=== PATIENT | male | born 1995 | race Caucasian/White ===

== ENCOUNTER 2017-10-17 13:47 | Emergency (ER) | payer BC ==
[2017-10-17 14:01] VITALS: BP 124/76; PULSE 81; TEMP 97.6; BMI 28.2
[2017-10-17] MEDS ORDERED: SODIUM CHLORIDE 0.9% 1000 ML INFUS.BAG IV ONE (14:17)
[2017-10-17] MEDS ORDERED: METOCLOPRAMIDE HCL INJECTION 10 MG/2 ML VIAL IVPB ONE (14:17)
[2017-10-17] MEDS ORDERED: ACETAMINOPHEN 325 MG TABLET (FP) PO ONE (14:17)
[2017-10-17] MEDS ORDERED: ACETAMINOPHEN 325 MG TABLET (FP) ONE (14:26)
--- NOTE | 2017-10-17 14:32 | PDOC ---
Attending Attestation - Resident Resident Name: Vikram Mendez - ED Attending Attestation I have performed the following: I have examined & evaluated the patient, The case was reviewed & discussed with the resident, I agree w/resident's findings & plan, Exceptions are as noted - HPI HPI: 10/17/17 15:17 The patient is a 22 year old male accompanied with his mother, with no significant past medical history, who presents to the emergency department for evaluation of shortness of breath. The patient reports shortness of breath 15 minutes after waking up. He describes his SOB as "hyperventilating" and states he was taking quick short breaths at the time. He called his mother who brought him to the ED for evaluation. His SOB resolved on the way to the ED. He reports he had a mild frontal headache after waking up, which has since resolved without intervention. The patient also reports 1 month of intermittent episodes of NBNB emesis every few days, most recently 15 minutes after eating last night. In addition he reports 1 month of night sweats and headaches. The patient reports visiting urgent care twice for these symptoms since 09/25 and was diagnosed with dehydration. He states he has been performing physical exercise since he joined [employer] 1 month ago. The patient reports feeling worn out from recent physical activity. The patient denies CP, fevers, chills, cough, nausea, vomiting, diarrhea, and constipation. Denies dysuria, frequency, urgency, and hematuria. Denies weight loss Allergies: NKA Social history: No reported cigarette, alcohol, or drug use. - Physicial Exam PE: 10/17/17 15:17 GENERAL: Awake, alert, and fully oriented, in no acute distress HEAD: No signs of trauma EYES: PERRLA, EOMI, sclera anicteric, conjunctiva clear ENT: Auricles normal inspection, hearing grossly normal, nares patent, oropharynx clear without exudates. Moist mucosa NECK: Normal ROM, supple, no lymphadenopathy, JVD, or masses LUNGS: Breath sounds equal, clear to auscultation bilaterally. No wheezes, and no crackles HEART: Regular rate and rhythm, normal S1 and S2, no murmurs, rubs or gallops ABDOMEN: Soft, nontender, normoactive bowel sounds. No guarding, no rebound. No masses EXTREMITIES: Normal range of motion, no edema. No clubbing or cyanosis. No cords, erythema, or tenderness BACK: No midline spinal tenderness in cervical/thoracic/lumbar region NEUROLOGICAL: Normal speech, cranial nerves intact, negative pronator drift, 5/ 5 strength in all 4 extremities, normal sensation to light touch in all 4 extremities, normal cerebellar exam, normal gait, normal reflexes and tone SKIN: Warm, Dry, normal turgor, no rashes or lesions noted. - Medical Decision Making 10/17/17 14:27 22yo M with no significant PMH presents to the ED with his mom after an episode of hyperventilation after he work up this morning. Pt also has been having 1 month of intermittent emesis, frontal headache, and lightheadedness. He has been to urgent care twice for these symptoms with normal work up. Pt admits to significant amount of stress since beginning physical training for the . He has missed multiple sessions of this training due to his sxs. Vitals and exam unremarkable. Will check basic labs, cpk, and treat nausea/ headache and reassess. It is unlikely that his blood work will be revealing of an etiology of these sxs given the duration, but will r/o anemia, dehydration, metabolic disarray. 10/17/17 15:30 labs wnl, cxr on my read appears normal. EKG pending. 10/17/17 15:57 Chest x-ray read with some mild congestion on the right. Patient's lungs are clear with normal oxygen saturation. Advised patient to have repeat chest x-ray as an outpatient. Patient has been asymptomatic while in the emergency department. EKG nonischemic. Patient is clinically well-appearing at this time, will refer to the resident clinic to establish care with her primary physician for follow-up. I discussed the physical exam findings, ancillary test results and final diagnoses with the patient. I answered all of the patient's questions. The patient was satisfied with the care received and felt comfortable with the discharge plan and treatment plan. The patient will call their primary care physician within 24 hours to arrange follow-up and will return to the Emergency Department with any new, persistent or worsening symptoms. Discharge Disposition - Diagnosis Shortness of breath - Discharge Dispostion Disposition: HOME Condition at time of disposition: Stable Last Admission D/C Date: 11/04/01 Decision to Admit order: No - Referrals Referrals: [facility] [place] [Provider Group] - Patient Instructions Printed Discharge Instructions: DI for Shortness of Breath, DI for Nausea -- Adult, DI for Vomiting -- Adult Additional Instructions: Call the provided referral number to schedule an appointment with a primary care provider within 3-4 days. As discussed, your CXR showed some congestion in the emergency department but your oxygen level, blood work, and vitals were all normal. Have the chest x-ray repeated when you follow up with your primary doctor. Return to the emergency department if you have any new, worsening, or concerning symptoms. - Post Discharge Activity Heart Score/ECG Review #1 10/17/17 15:56 Twelve-lead EKG was performed and reviewed by me. Normal sinus rhythm, rate 68. Normal axis. No ST elevations. Isolated T-wave inversion in lead 3.
[2017-10-17 14:50] LABS: BASO % 2.7 % (0-2.0); EOS % 1.6 % (0-4.5); HEMATOCRIT 45.5 % (35.4-49); HEMOGLOBIN 15.3 GM/dl (11.7-16.9); LYMPH % 23.5 % (8-40); MCH 27.7 pg (25.7-33.7); MCHC 33.7 g/dl (32.0-35.9); MEAN CELL VOLUME 82.4 fl (80-96); MEAN PLT VOLUME 8.5 fl (7.5-11.1); MONO % 11.2 % (3.8-10.2); PLATELET COUNT 404 K/MM3 (134-434); RBC 5.53 M/mm3 (4.00-5.60); RDW 12.3 % (11.9-15.9); WHITE BLOOD COUNT 7.1 K/mm3 (4.0-10.8)
[2017-10-17 15:01] LABS: ALBUMIN 4.5 g/dl (3.5-5.0); ALK PHOS 84 U/L (32-92); ANION GAP 6 (8-16); BLOOD UREA NITROGEN 11 mg/dl (7-18); CALCIUM 9.2 mg/dl (8.4-10.2); CHLORIDE 105 mmol/L (98-107); CO2 24 mmol/L (22-28); CREATININE 0.8 mg/dl (0.6-1.3); GLUCOSE,RANDOM 97 mg/dl (74-106); SGOT/AST 19 U/L (10-42); SGPT/ALT 21 U/L (10-40); SODIUM 135 mmol/L (136-145); TOT PROT 7.6 g/dl (6.4-8.3)
[2017-10-17 15:03] LABS: BILIRUBIN,TOTAL < 0.5 mg/dl (0.2-1.0)
--- NOTE | 2017-10-17 15:14 | PDOC ---
History of Present Illness - General Chief Complaint: Nausea/Vomiting Stated Complaint: VOMITING Time Seen by Provider: 10/17/17 13:56 History Source: Patient Exam Limitations: No Limitations - History of Present Illness Initial Comments: 10/17/17 15:10 The patient is a 22M with no PMH who presents to the ER with complaints of headache, shortness of breath, lightheadedness, and weakness. The patient states that this has been going on since around September 25, 2017 and has been intermittent, happening up to 3 times per day and lasting about an hour each time. He also admits to nausea and vomiting with night sweats. 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 He denies any CP, fever, chills. Past History - Past Medical History Allergies/Adverse Reactions: Allergies Allergy/AdvReac Type Severity Reaction Status Date / Time No Known Allergies Allergy Verified 10/17/17 13:48 Home Medications: Ambulatory Orders NK [No Known Home Medication] 10/17/17 COPD: No - Suicide/Smoking/Psychosocial Hx Smoking History: Never smoked Have you smoked in the past 12 months: No Information on smoking cessation initiated: No Hx Alcohol Use: No Drug/Substance Use Hx: No Substance Use Type: None Review of Systems - Review of Systems Able to Perform ROS?: Yes Comments:: 10/17/17 15:16 GENERAL/CONSTITUTIONAL: Positive for weakness. No fever or chills. HEAD, EYES, EARS, NOSE AND THROAT: No change in vision. No ear pain or discharge. No sore throat. CARDIOVASCULAR: Positive for lightheadedness. No chest pain or palpitations. RESPIRATORY: Positive for shortness of breath. No cough, wheezing, or hemoptysis. GASTROINTESTINAL: Positive for nausea and vomiting. No diarrhea, constipation, or abdominal pain. GENITOURINARY: No dysuria, frequency, hematuria, or change in urination. MUSCULOSKELETAL: No joint or muscle swelling or pain. No neck or back pain. SKIN: No rash or lesions. NEUROLOGIC: No headache, numbness, tingling, weakness, loss of consciousness, or change in strength/sensation. ENDOCRINE: No increased thirst. No abnormal weight change. HEMATOLOGIC/LYMPHATIC: No anemia, easy bleeding, or history of blood clots. ALLERGIC/IMMUNOLOGIC: No hives or skin allergy. Is the patient limited Croatian proficient: No *Physical Exam - Vital Signs Last Vital Signs Temp Pulse Resp BP Pulse Ox 97.6 F 81 20 124/76 100 10/17/17 13:48 10/17/17 13:48 10/17/17 13:48 10/17/17 13:48 10/17/17 13:48 - Physical Exam Comments: 10/17/17 15:24 GENERAL: Well developed, well nourished. Awake and alert. No acute distress. HEENT: Normocephalic, atraumatic. Hearing grossly normal. Moist mucous membranes. PERRLA, EOMI. No conjunctival pallor. Sclera are non-icteric. NECK: Supple. Full ROM. CARDIOVASCULAR: Regular rate and rhythm. No murmurs, rubs, or gallops. PULMONARY: No evidence of respiratory distress. Lungs clear to auscultation bilaterally. No wheezing, rales or rhonchi. ABDOMINAL: Soft. Non-tender. Non-distended. No rebound or guarding. GENITOURINARY: No CVA tenderness bilaterally. MUSCULOSKELETAL: Normal range of motion at all joints. No bony deformities or tenderness. EXTREMITIES: No cyanosis. No clubbing. No edema. No calf tenderness or swelling. SKIN: Warm and dry. Normal capillary refill. No rashes. No jaundice. NEUROLOGICAL: Alert, awake, appropriate. Cranial nerves 2-12 intact. No deficits to light touch and temperature in face, upper extremities and lower extremities. No motor deficits in the in face, upper extremities and lower extremities. Finger to nose normal bilaterally. Normal speech. Gait is normal without ataxia. PSYCHIATRIC: Cooperative. Good eye contact. Appropriate mood and affect. ED Treatment Course - LABORATORY CBC & Chemistry Diagram: 10/17/17 14:37 10/17/17 14:37 - ADDITIONAL ORDERS Additional order review: Laboratory Results 10/17/17 10/17/17 14:37 14:37 Sodium 135 L Potassium 4.0 Chloride 105 Carbon Dioxide 24 Anion Gap 6 L BUN 11 Creatinine 0.8 Creat Clearance w eGFR > 60 Random Glucose 97 Calcium 9.2 Total Bilirubin < 0.5 AST 19 ALT 21 Alkaline Phosphatase 84 Creatine Kinase 54 Total Protein 7.6 Albumin 4.5 10/17/17 14:37 RBC 5.53 MCV 82.4 MCHC 33.7 RDW 12.3 MPV 8.5 Neutrophils % 61.0 Lymphocytes % 23.5 Monocytes % 11.2 H Eosinophils % 1.6 Basophils % 2.7 H - RADIOLOGY Radiology Studies Ordered: Category Date Time Status CHEST PA & LAT [RAD] Stat Radiology 10/17/17 14:17 Taken - Medications Given in the ED: ED Medications Discontinued Medications Generic Name Dose Route Start Last Admin Trade Name Marcin PRN Reason Stop Dose Admin Acetaminophen 650 mg 10/17/17 14:17 10/17/17 14:42 Tylenol - PO 10/17/17 14:18 650 mg ONCE ONE Administration Metoclopramide HCl 10 mg 10/17/17 14:17 10/17/17 14:42 Reglan Injection - IVPB 10/17/17 14:18 10 mg ONCE ONE Administration Sodium Chloride 1,000 ml 10/17/17 14:17 10/17/17 14:42 Normal Saline - IV 10/17/17 14:18 1,000 ml ONCE ONE Administration Medical Decision Making - Medical Decision Making 10/17/17 15:25 The patient is a 22M with no PMH who presents to the ER with complaints of SOB, lightheadedness, and weakness. I am concerned for an electrolyte abnormality. However, pt's exam is normal including neuro exam. Will check electrolytes, CXR , EKG. CBC, CMP WNL. CXR unremarkable. Pending EKG. Giving reglan, tylenol, and fluids. Will reassess. 10/17/17 15:54 Pt states he feels better. I have discussed the importance of f/u with a PCP. Will give referral to IM clinic. *DC/Admit/Observation/Transfer Diagnosis at time of Disposition: Shortness of breath - Discharge Dispostion Disposition: HOME Condition at time of disposition: Stable - Referrals Referrals: Mark Bliss MD [Staff Physician] - Eric Michelle MD [Staff Physician] - - Patient Instructions Printed Discharge Instructions: DI for Shortness of Breath, DI for Nausea -- Adult, DI for Vomiting -- Adult - Post Discharge Activity
--- NOTE | 2017-10-19 22:38 | EKG ---
Test Reason : Blood Pressure : / mmHG Vent. Rate : 068 BPM Atrial Rate : 068 BPM P-R Int : 132 ms QRS Dur : 082 ms QT Int : 398 ms P-R-T Axes : 034 108 045 degrees QTc Int : 423 ms NORMAL SINUS RHYTHM WITH SINUS ARRHYTHMIA RIGHTWARD AXIS NONSPECIFIC ST ABNORMALITY ABNORMAL ECG NO PREVIOUS ECGS AVAILABLE Confirmed by AMY MATA MD ([id number]) on 10/19/2017 10:38:20 PM Referred By: MD ANTOINE Confirmed By:AMY MATA MD
== END 2017-10-17 16:04 | disposition home or self-care (01) ==
LOC: FER 13:47
PROC: 3E0337Z Introduction of Electrolytic and Water Balance Substance into Peripheral Vein, Percutaneous Approach (ICD-10-PCS; principal; 2017-10-17)
PROC: 3E033GC Introduction of Other Therapeutic Substance into Peripheral Vein, Percutaneous Approach (ICD-10-PCS; 2017-10-17)
DX: R06.02 Shortness of breath (principal)
CPT/HCPCS: 36415; 71046-TC-FY; 80053; 82550; 85025; 93005; 99282-25; J7030